=== PATIENT | male | born 1965 | race Caucasian/White ===

== ENCOUNTER 2018-05-08 04:31 | Emergency (ER) | payer OTHER ==
[~2018-05-08] VITALS: Ht 160 cm; Wt 83.9 kg
[2018-05-08 04:34] VITALS: Ht 160 cm; Wt 83.9 kg
[2018-05-08 05:58] VITALS: BP 135/89
== END 2018-05-08 05:58 | disposition home or self-care (01) ==
LOC: ED 04:31
DX: H16.133 Photokeratitis, bilateral (principal); W89.0XXA Exposure to welding light (arc), initial encounter; Y93.89 Activity, other specified; Y92.89 Other specified places as the place of occurrence of the external cause; Y99.8 Other external cause status
CPT/HCPCS: J3010; Q0162

== ENCOUNTER 2018-10-25 20:17 | Emergency (ER) | payer OTHER ==
[~2018-10-25] VITALS: Ht 160 cm; Wt 83.9 kg
[2018-10-25 20:33] VITALS: Ht 160 cm; Wt 83.9 kg
[2018-10-25 21:54] VITALS: BP 180/113
== END 2018-10-25 22:06 | disposition home or self-care (01) ==
LOC: ED 20:17
DX: S01.01XA Laceration without foreign body of scalp, initial encounter (principal); I10 Essential (primary) hypertension; W22.8XXA Striking against or struck by other objects, initial encounter; Y93.89 Activity, other specified; Y92.89 Other specified places as the place of occurrence of the external cause; Y99.9 Unspecified external cause status
CPT/HCPCS: 90715

== ENCOUNTER 2020-06-21 15:56 | Inpatient (IN) | payer OTHER ==
[~2020-06-21] VITALS: Ht 160 cm; Wt 79.8 kg
[2020-06-21 16:09] VITALS: Ht 160 cm; Wt 79.8 kg
[2020-06-21 18:04] LABS: BASOPHIL % 0.5 % (0.2-1.5); PLATELET COUNT 277 x10^3mcL (152-348); RED CELL DISTRIBUTION WIDTH 13.4 % (12.1-16.2)
[2020-06-21 18:07] LABS: ALBUMIN 3.6 g/dL (3.4-5.0); ALKALINE PHOSPHATASE 75 U/L (46-116); ALT/SGPT 25 U/L (16-63); AST/SGOT 18 U/L (15-37); BILIRUBIN TOTAL 0.4 mg/dL (0.20-1.00); CARBON DIOXIDE 29.3 mmol/L (21-32); CHLORIDE SERUM 104 mmol/L (98-107); CREATININE SERUM 1.3 mg/dL (0.7-1.3); GFR1 > 60 mL/min; GLUCOSE SERUM 114 mg/dL (74-106); POTASSIUM SERUM 3.9 mmol/L (3.5-5.1); SODIUM SERUM 140 mmol/L (136-145); TOTAL PROTEIN, SERUM 7.2 g/dL (6.4-8.2)
[2020-06-21 19:01] LABS: CALCIUM 8.9 mg/dL (8.5-10.1)
[2020-06-21 19:02] VITALS: BP 159/102
== END 2020-06-21 21:27 | disposition left against medical advice (07) | DRG 190 ==
LOC: ED 15:56 → DU 20:40
PROVIDERS: Emergency Medicine; ADMIT Family Medicine; ATTEND Family Medicine
DX: I21.4 Non-ST elevation (NSTEMI) myocardial infarction (principal); G45.9 Transient cerebral ischemic attack, unspecified; I10 Essential (primary) hypertension
CPT/HCPCS: G0378; Q9967